=== PATIENT | male | born 1970 | race Caucasian/White ===

== ENCOUNTER 2017-03-23 14:17 | Emergency (ER) | payer MEDICAID, OTHER ==
[~2017-03-23] VITALS: Ht 172.7 cm; Wt 100.0 kg
[~2017-03-23 14:17] MED LIST: ALD50 PO; ASPI-1159 PO; FURO40TA5 PO; POTA20TA75 PO; VALS80TA2 PO
[2017-03-23 16:35] VITALS: BP 102/73
== END 2017-03-23 16:37 | disposition home or self-care (01) ==
LOC: ER 14:17
DX: S20.419A Abrasion of unspecified back wall of thorax, initial encounter (principal); S80.211A Abrasion, right knee, initial encounter; I25.2 Old myocardial infarction; I10 Essential (primary) hypertension; E78.00 Pure hypercholesterolemia, unspecified; Z79.82 Long term (current) use of aspirin; F17.210 Nicotine dependence, cigarettes, uncomplicated; Z95.5 Presence of coronary angioplasty implant and graft; E66.9 Obesity, unspecified; Z68.33 Body mass index [BMI] 33.0-33.9, adult; Y04.0XXA Assault by unarmed brawl or fight, initial encounter; Y93.89 Activity, other specified; Y92.018 Other place in single-family (private) house as the place of occurrence of the external cause
CPT/HCPCS: 99283

== ENCOUNTER 2019-07-03 21:21 | Emergency (ER) | payer MEDICAID, OTHER ==
[~2019-07-03] VITALS: Ht 172.7 cm; Wt 91.0 kg
[~2019-07-03 21:21] MED LIST changes: -ASPI-1159 PO; +ASPI-1393 PO; +POTA20TA12 PO; -POTA20TA75 PO
[2019-07-03 23:55] LABS: BASOPHILS % 1.4 % (0.0-2.0); EOSINOPHILS % 1.6 % (0.0-5.0); HEMATOCRIT. 25.5 % (42.0-52.0); HEMOGLOBIN. 8.1 g/dL (14.0-18.0); LYMPHOCYTES % 10.6 % (20.0-50.0); MEAN PLATELET VOLUME 7.3 fl (7.4-10.4); MONOCYTES % 11.1 % (2.0-8.0); NEUTROPHILS % 75.3 % (40.0-76.0); PLATELET 496 x1000/uL (130-400); RED BLOOD CELL COUNT 3.23 mill/uL (4.7-6.1); RED CELL DISTRIBUTION WIDTH 21.8 % (11.6-14.6)
[2019-07-03 23:57] LABS: CHLORIDE 103 mEq/L (98-107)
[2019-07-04] LABS: INR 1.1; PROTHROMBIN TIME 10.9 sec (9.6-11.0)
[2019-07-04 01:33] VITALS: BP 128/89
== END 2019-07-04 01:39 | disposition home or self-care (01) ==
LOC: ER 21:21
DX: D64.9 Anemia, unspecified (principal); I10 Essential (primary) hypertension; F17.200 Nicotine dependence, unspecified, uncomplicated; Z98.890 Other specified postprocedural states; Z79.899 Other long term (current) drug therapy; Z85.9 Personal history of malignant neoplasm, unspecified; Z85.71 Personal history of Hodgkin lymphoma; Z79.82 Long term (current) use of aspirin
CPT/HCPCS: 36415; 71045; 80053; 85025; 85610; 86850; 86900; 86901; 93005; 99284; Z7610